=== PATIENT | female | born 1945 | race Caucasian/White ===

== ENCOUNTER → 2017-12-10 | Outpatient (CLI) | payer MEDICARE | END | disposition home or self-care (01) | LOC: RAD 10:17 | PROVIDERS: ATTEND Internal Medicine | DX: Z11.59 Encounter for screening for other viral diseases (principal); Z13.89 Encounter for screening for other disorder; K82.4 Cholesterolosis of gallbladder; K76.89 Other specified diseases of liver | CPT/HCPCS: 36415; 76700; 86803 ==

== ENCOUNTER → 2020-02-06 | Outpatient (CLI) | payer MEDICARE ==
[~2020-02-06] MED LIST: OMNIPAQUE 350 MG/ML, 100ML BOTTLE ONE
== END | disposition home or self-care (01) ==
LOC: CFH 14:02
PROVIDERS: ATTEND Nurse Practitioner Family
DX: I67.1 Cerebral aneurysm, nonruptured (principal); G45.4 Transient global amnesia
CPT/HCPCS: 70496; 70498; Q9967